=== PATIENT | male | born 1925 | race Caucasian/White ===

== ENCOUNTER → 2016-08-31 | Outpatient (CLI) | payer MEDICARE, BC ==
[~2016-08-31] MED LIST: ACLIDINIUM INH; BACTROBAN22 GM TOP; BYSTOLIC10 MG PO; BYSTOLIC2.5 MG PO; CRESTOR10 MG PO; CYMBALTA60 MG PO; FLUOCINOLON118.28 ML TOP; HALFPRIN81 MG PO; JANUVIA50 MG PO; LINZESS145 MCG PO; LOTRIMIN AF28.35 GM TOP; MULTI-DAY VITA1 EACH PO; NITROSTAT0.4 MG SL; NIZORAL 2%15 GM TOP; NORVASC5 MG PO; NOVOLOG FL100 UNIT/1 SUBCUT; PROSCAR5 MG PO; Repatha SUBCUT; SILVADENE20 GM TOP; SYNTHROID100 MCG PO; TOUJEO SOL300 UNIT/1 SUBCUT; TRESIBA FL100 UNIT/1 INJECT; TRIAMCINOLONE A15 GM TOP; VITAMIN D31000 UNIT PO; [UNRECOGNIZED DRUG - OTHER] INH
== END | disposition short-term general hospital (02) ==
LOC: CLCARD 08-28 13:54
DX: I25.10 Atherosclerotic heart disease of native coronary artery without angina pectoris (principal); E78.5 Hyperlipidemia, unspecified; E11.9 Type 2 diabetes mellitus without complications; I10 Essential (primary) hypertension; I35.8 Other nonrheumatic aortic valve disorders; E66.9 Obesity, unspecified; R93.6 Abnormal findings on diagnostic imaging of limbs; I27.2 Other secondary pulmonary hypertension; I73.9 Peripheral vascular disease, unspecified; R53.81 Other malaise; Z95.2 Presence of prosthetic heart valve

== ENCOUNTER 2016-09-26 11:41 | Observation (INO) | payer MEDICARE, BC ==
[~2016-09-26] VITALS: Ht 167.6 cm; Wt 89.4 kg
[~2016-09-26 11:41] MED LIST changes: -BYSTOLIC2.5 MG PO; -JANUVIA50 MG PO; -SILVADENE20 GM TOP; -TRESIBA FL100 UNIT/1 INJECT
[2016-09-26] MEDS ORDERED: SILVADENE20 GM TOP (12:41)
[2016-09-26] MEDS ORDERED: JANUVIA50 MG PO (12:42)
[2016-09-26] MEDS ORDERED: TRESIBA FL100 UNIT/1 INJECT (12:42)
[2016-09-27] MEDS ORDERED: BYSTOLIC2.5 MG PO (11:14)
== END 2016-09-27 13:45 | disposition short-term general hospital (02) ==
LOC: OBS 11:41 → IP 11:54 → OBS 11:54 → IP 09-27 13:45
PROVIDERS: ADMIT Family Medicine
DX: I95.1 Orthostatic hypotension (principal); D64.9 Anemia, unspecified; I25.10 Atherosclerotic heart disease of native coronary artery without angina pectoris; J44.9 Chronic obstructive pulmonary disease, unspecified; I73.9 Peripheral vascular disease, unspecified; E11.22 Type 2 diabetes mellitus with diabetic chronic kidney disease; I12.9 Hypertensive chronic kidney disease with stage 1 through stage 4 chronic kidney disease, or unspecified chronic kidney disease; E11.319 Type 2 diabetes mellitus with unspecified diabetic retinopathy without macular edema; E78.5 Hyperlipidemia, unspecified; E03.9 Hypothyroidism, unspecified; G47.33 Obstructive sleep apnea (adult) (pediatric); F32.9 Major depressive disorder, single episode, unspecified; Z87.891 Personal history of nicotine dependence; Z88.1 Allergy status to other antibiotic agents; Z88.5 Allergy status to narcotic agent; Z88.8 Allergy status to other drugs, medicaments and biological substances; Z79.4 Long term (current) use of insulin; Z79.82 Long term (current) use of aspirin; Z79.899 Other long term (current) drug therapy; Z95.1 Presence of aortocoronary bypass graft; Z95.4 Presence of other heart-valve replacement; Z96.651 Presence of right artificial knee joint; Z98.890 Other specified postprocedural states; E55.9 Vitamin D deficiency, unspecified; I65.21 Occlusion and stenosis of right carotid artery
CPT/HCPCS: G0378; G0379; J1650; J1815

== ENCOUNTER → 2016-09-27 | Outpatient (CLI) | payer MEDICARE, BC ==
[~2016-09-27] MED LIST changes: +BYSTOLIC2.5 MG PO; +JANUVIA50 MG PO; +SILVADENE20 GM TOP; +TRESIBA FL100 UNIT/1 INJECT
== END | disposition short-term general hospital (02) ==
LOC: CLVASC 14:04
DX: I65.21 Occlusion and stenosis of right carotid artery (principal)

== ENCOUNTER → 2016-09-28 | Outpatient (CLI) | payer MEDICARE, BC | END | disposition short-term general hospital (02) | LOC: CLCARD 08:11 | DX: I13.0 Hypertensive heart and chronic kidney disease with heart failure and stage 1 through stage 4 chronic kidney disease, or unspecified chronic kidney disease (principal); E11.22 Type 2 diabetes mellitus with diabetic chronic kidney disease; I50.9 Heart failure, unspecified; N18.9 Chronic kidney disease, unspecified; I95.9 Hypotension, unspecified; R29.6 Repeated falls; I25.10 Atherosclerotic heart disease of native coronary artery without angina pectoris; I77.9 Disorder of arteries and arterioles, unspecified; I35.9 Nonrheumatic aortic valve disorder, unspecified; E66.9 Obesity, unspecified; I73.9 Peripheral vascular disease, unspecified; Z95.2 Presence of prosthetic heart valve; Z95.1 Presence of aortocoronary bypass graft ==

== ENCOUNTER → 2016-12-13 | Outpatient (CLI) | payer MEDICARE, BC | END | disposition short-term general hospital (02) | LOC: CLVASC 09:41 | DX: Z48.812 Encounter for surgical aftercare following surgery on the circulatory system (principal); Z98.890 Other specified postprocedural states ==